=== PATIENT | female | born 1965 | race Caucasian/White ===

== ENCOUNTER 2023-02-11 18:56 | Outpatient (OUT) | payer OTHER, SELFPAY ==
--- NOTE | 2023-02-11 19:07 | US_ITS ---
[place] [id number] Patient Name: KAT GARAY MRN: [id number] date: 1965 Sex: F Assigned Patient Location: [facility] Current Patient Location: [facility] Accession/Order Number: [id number] Exam Date: 02/11/2023 19:07 Report Date: 02/12/2023 06:30 At the request of: IMTIAZ FAN Procedure: US venous doppler LE LT EXAMINATION: US venous doppler LE LT HISTORY: m79.662 PAIN IN LEFT LOWER LEG COMPARISON: No relevant comparison available. FINDINGS: REGION: Left lower extremity THROMBI: None. COMPRESSIBILITY: Normal compressibility. FLOW: Normal waveform and antegrade flow between 5 and 20 cm/s. OTHER: None. IMPRESSION: 1. No deep vein thrombus within the left lower extremity. Electronically authenticated by: PATRICK LANG Date: 02/12/2023 06:30
== END 2023-02-11 18:57 ==
PROVIDERS: PCP Family Medicine; Visit Provider Family Medicine
DX: M79.662 Pain in left lower leg (principal)
CPT/HCPCS: 93971